=== PATIENT | female | born 1940 | race African-American/Black ===

== ENCOUNTER 2018-11-01 12:20 | Emergency (ER) | payer MEDICARE ==
[~2018-11-01] VITALS: Ht 162.6 cm; Wt 77.3 kg
[2018-11-01] MEDS ORDERED: BISO1TAB10 PO (12:50)
[2018-11-01] MEDS ORDERED: FE F PO (12:50)
[2018-11-01] MEDS ORDERED: HYDROCODONE/ACETAMINOPHEN 5-325 MG TABLET PO ONE (13:45)
[2018-11-01] MEDS ORDERED: MIDAZOLAM HCL 2 MG/2 ML VIAL IVP ONE (14:00)
[2018-11-01] MEDS ORDERED: FentaNYL CITRATE-PF 100 MCG/2 ML VIAL IVP ONE (14:00)
[2018-11-01] MEDS ORDERED: SODIUM CHLORIDE 0.9% 800 ML IV ONE (14:45)
[2018-11-01 16:20] VITALS: BP 123/68
== END 2018-11-01 16:53 | disposition home or self-care (01) ==
LOC: EMS 12:22
DX: S82.52XA Displaced fracture of medial malleolus of left tibia, initial encounter for closed fracture (principal); W01.0XXA Fall on same level from slipping, tripping and stumbling without subsequent striking against object, initial encounter; Y93.01 Activity, walking, marching and hiking; Y92.89 Other specified places as the place of occurrence of the external cause; Y99.8 Other external cause status
CPT/HCPCS: 27788; 73610; 73630; 99285; J2250; J3010; 29515; 96374; 99152